=== PATIENT | female | born 1995 | race African-American/Black ===

== ENCOUNTER 2017-09-03 19:51 | Emergency (ER) | payer SELFPAY ==
[~2017-09-03] VITALS: Ht 157.5 cm; Wt 91.0 kg
[2017-09-03 19:53] VITALS: BP 163/87; PULSE 105; RESP 18; TEMP 99.2; O2SAT 99
--- NOTE | 2017-09-03 21:43 | PD ---
HPI Chief Complaint: Skin Problem Time Seen by Provider: 21:15 Travel History International Travel<30 days: No Contact w/Intl Traveler<30days: No Traveled to known affect area: No History of Present Illness HPI Patient is a 22-year-old female presenting to the emergency department for evaluation of right third finger swelling, an area of swelling to the back of her neck as well as her left wrist. Patient states her symptoms started this morning upon awakening. She reports that she had her wisdom teeth removed 2 days ago, she is currently on hydrocodone and clindamycin, her mother sent her to emergency department because she was concerned for an allergic reaction. Patient denies any shortness of breath, wheezing, fever, chills, nausea, vomiting, itching. She reports the pain in her finger is a 4 out of 10 and describes it as sore. [facility] Past Medical History Medical History: Denies Significant Hx Diminished Hearing: No Tetanus Vaccination: Unknown Influenza Vaccination: No ?: Not LMP: 08/15/2017 Past Surgical History Oral Surgery: Yes (wisdom teeth) Social History Alcohol Use: Yes (satya) Tobacco Use: No Substance Use: No Allergies-Medications (Allergen,Severity, Reaction): Coded Allergies: No Known Allergies (Unverified , 09/03/17) Review of Systems Except as stated in HPI: all other systems reviewed are Neg General / Constitutional: No: Fever, Chills HENT: No: Headaches Cardiovascular: No: Chest Pain or Discomfort Respiratory: No: Shortness of Breath, Wheezing Musculoskeletal: Positive: Myalgias, Edema Skin: Positive Lesions Physical Exam Narrative GENERAL: Well-developed, well-nourished, well-appearing female. Presenting in no acute distress. SKIN: Warm and dry. Edema and mild erythema noted to the right third finger. Scabbed area to the back of her neck on the right side at the hairline, area of erythema to the left wrist on the lateral aspect. No fluctuance noted. No warmth noted. HEAD: Atraumatic. Normocephalic. EYES: Pupils equal and round. No scleral icterus. No injection or drainage. ENT: No nasal bleeding or discharge. Mucous membranes pink and moist. NECK: Trachea midline. No JVD. CARDIOVASCULAR: Regular rate and rhythm. RESPIRATORY: No accessory muscle use. Clear to auscultation. Breath sounds equal bilaterally. GASTROINTESTINAL: Abdomen soft, non-tender, nondistended. Hepatic and splenic margins not palpable. MUSCULOSKELETAL: Extremities without clubbing, cyanosis, or edema. No obvious deformities. NEUROLOGICAL: Awake and alert. No obvious cranial nerve deficits. Motor grossly within normal limits. Five out of 5 muscle strength in the arms and legs. Normal speech. PSYCHIATRIC: Appropriate mood and affect; insight and judgment normal. Data Data Last Documented VS Vital Signs Date Time Temp Pulse Resp B/P (MAP) Pulse Ox O2 Delivery O2 Flow Rate FiO2 09/03/17 19:53 99.2 105 18 163/87 (112) 99 Orders Orders Sulfameth-Trimeth 400-80 Mg (Bactrim 400 (09/03/17 21:45) MDM Medical Decision Making Medical Screen Exam Complete: Yes Emergency Medical Condition: Yes Interpretation(s) Vital Signs Date Time Temp Pulse Resp B/P (MAP) Pulse Ox O2 Delivery O2 Flow Rate FiO2 09/03/17 19:53 99.2 105 18 163/87 (112) 99 Differential Diagnosis Cellulitis versus insect bite versus dermatitis versus other Narrative Course Patient is a 22-year-old female presenting to the emergency department for evaluation of multiple skin complaints. Patient is on clindamycin, she reports that she has been taking compliantly and denies any issues related to it. Exam does not appear consistent with an allergic reaction to the antibiotics. It appears patient was possibly bitten by an insect while she slept and noticed her symptoms upon awakening this morning. Her vital signs are stable. Bactrim will be added to patient's current antibiotic regimen. She was also seen and evaluated by my attending physician. No further workup is necessary at this time. Patient was given strict return precautions. Patient verbalized understanding of instructions. Patient stable for discharge. Diagnosis Primary Impression: Cellulitis Qualified Codes: L03.90 - Cellulitis, unspecified Referrals: Primary Care Physician 3 days Patient Instructions: Cellulitis (ED), General Instructions Additional Instructions: Continue previously prescribed antibiotics Add Bactrim as prescribed in addition to previously prescribed medications Follow-up with your primary doctor Return to emergency department for any new or worsening symptoms Med/Other Pt SpecificInfo: Prescription(s) given Scripts Sulfamethoxazole-Trimethoprim (Bactrim DS) 800-160 Mg Tab 1 TAB PO BID for Infection, #20 TAB 0 Refills Prov: Merna Monroy 09/03/17 Disposition: 01 DISCHARGE HOME Condition: Stable Merna Monroy Laura DAVENPORT September 03, 2017 21:43
[2017-09-03] MEDS ORDERED: SULFAMETHOXAZOLE-TRIMETHOPRIM 400-80 MG TAB PO ONE (21:45)
[2017-09-03] MEDS ORDERED: BACT800T5 PO (21:50)
--- NOTE | 2017-09-03 21:53 | PD ---
Data Data Last Documented VS Vital Signs Date Time Temp Pulse Resp B/P (MAP) Pulse Ox O2 Delivery O2 Flow Rate FiO2 09/03/17 19:53 99.2 105 18 163/87 (112) 99 Orders Orders Sulfameth-Trimeth 400-80 Mg (Bactrim 400 (09/03/17 21:45) MDM Supervised Visit with WARD: Yes Narrative Course I, Dr. Wong, have reviewed the advance practice practitioner's documentation and am in agreement, met with the patient face to face, made the diagnosis, and the medical decision making was done by me. *My assessment and Findings: Patient has some rather diffuse swelling of the right third finger. Etiology is not entirely clear but does not require hand surgeon or incision and drainage at this time. There is good flexion-extension of all the joints without pain on both the passive and active basis. She will be covered with antibiotics. She has a couple other little areas of nodular swelling which are much less significant than the finger Scripts Sulfamethoxazole-Trimethoprim (Bactrim DS) 800-160 Mg Tab 1 TAB PO BID for Infection, #20 TAB 0 Refills Prov: Merna Monroy 09/03/17 Sander Wong MD September 03, 2017 21:53
== END 2017-09-03 22:12 | disposition home or self-care (01) ==
LOC: NEPD 19:51
DX: M79.89 Other specified soft tissue disorders (principal); L03.90 Cellulitis, unspecified
CPT/HCPCS: 99283